=== PATIENT | male | born 1950 | race Two or more races ===

== ENCOUNTER → 2023-09-09 | Outpatient (CLI) | payer MEDICARE ==
--- NOTE | 2023-09-09 14:40 | P.GSHP ---
History of Present Illness H&P Date: 09/09/23 Chief Complaint: left breast mass, start of something on the right Mr. Perkins is a 72 year old male from [place] with a complaint of a mass in his left breast. He is here because his mother is in Hospice. The patient has been here for about 5 days. He saw a MD on Sep 01 or and he did a mammogram and ultrasound. In the interum he came to [place] and wants to have this evaluated. He has had the lump for about 2 months. He noted it in the shower. He is uncertain if it has changed in size. He is not complaining of any nipple discharge. He has not had any trauma or infection in the breast. He has not had any surgery on his breast. By his primary care physician and told that he needed a biopsy of his left breast. Secondary to the fact that he is in [place] he would like to have this evaluated here. caffiene: 1 pot/day nicotine: 1/2 PPD for 50 years chocolate: occasional Family History: sister: ? type Surgical History: left shoulder replacement right rotator cuff Medical History: none Social History: nicotine: 1/2 PPD for 50 years alcohol: two or three times a week drugs: Weekly - Constitutional Constitutional: Denies chills, Denies fever - EENT Eyes: denies blurred vision, denies pain Ears: bilateral: decreased hearing Ears, nose, mouth and throat: Denies headache, Denies sore throat - Breasts Breasts: bilateral: as per HPI - Cardiovascular Cardiovascular: Reports shortness of breath - Respiratory Respiratory: Denies cough, Denies 7 - Gastrointestinal Gastrointestinal: Denies abdominal pain, Denies diarrhea, Denies nausea, Denies vomiting - Genitourinary (Male) Genitourinary: Denies dysuria, Denies hematuria - Musculoskeletal Musculoskeletal: Reports myalgias - Integumentary Integumentary: Denies pruritus, Denies rash - Neurological Neurological: Denies numbness, Denies weakness - Psychiatric Psychiatric: Reports anxiety, Reports depression - Endocrine Endocrine: Denies fatigue, Denies weight change - Hematologic/Lymphatic Comment: none - Allergic/Immunologic Allergic/Immunologic: Reports seasonal allergies Surgical - Exam - General moderate distress - Eyes normal ocular movement - Neck trachea midline - Respiratory normal respiratory effort, clear to auscultation - Cardiovascular Heart Sounds: normal: S1, S2 - Abdomen Abdomen: soft, non tender, no guarding, no rigid, no rebound - Integumentary normal turgor - Neurologic no disoriented, no combative - Musculoskeletal normal gait - Psychiatric oriented to time, oriented to person, oriented to place, speech is normal, memory intact Breast exam: Right breast: Multi positional exam slight fullness behind the right nipple areolar area no dominant masses or nodules of concern otherwise Right axilla: No adenopathy of concern Left breast: Multi positional exam fullness behind the nipple areolar area approximately 2 x 3 cm in size No other dominant masses or nodules of concern Left axilla: No adenopathy of concern Testicular exam no lumps or masses of concern in either testicle Results Mammogram and ultrasound were done in [place] and those results are not yet available to us Assessment and Plan Assessment: Impression: Bilateral breast masses/left greater than the right Probable gynecomastia Radiographs pending from [place] Plan: Obtain radiographs from [place] Probable left breast core biopsy Follow-up after core biopsy
== END | disposition home or self-care (01) ==
LOC: RADMAMWWP 14:19
PROVIDERS: ATTEND Surgery
DX: Z53.9 Procedure and treatment not carried out, unspecified reason (principal)

== ENCOUNTER → 2023-09-09 | Outpatient (CLI) | payer MEDICARE | LOC: WWCWWP 14:16 | PROVIDERS: ATTEND Surgery | DX: N63.20 Unspecified lump in the left breast, unspecified quadrant (principal); N63.10 Unspecified lump in the right breast, unspecified quadrant; F17.210 Nicotine dependence, cigarettes, uncomplicated ==

== ENCOUNTER → 2023-09-28 | Day surgery (SDC) | payer MEDICARE ==
--- NOTE | 2023-10-07 11:57 | USB ---
Pathology Description: Location: posterior. Needle Type: Mammotome Cores: 10 Gauge: 13 The procedure of ultrasound guided core biopsy was explained to the patient. Benefits, alternatives, and risks were discussed. An informed consent was then obtained. The patient was placed in supine positioning for imaging and for the procedure. The overlying skin was prepped and draped in usual sterile fashion. Lidocaine was used as anesthetic into the skin and subcutaneous tissue up to area of concern in the subareolar left breast. Under ultrasound guidance, a 13-gauge vacuum-assisted mammotome biopsy gun was used to obtain 10 core samples. Due to suspicion of gynecomastia, no clip was placed. The patient tolerated the procedure well without any immediate complication. The patient was kept in the radiology department for short stay after the procedure and then discharged home in stable condition. No post procedure mammogram was performed. IMPRESSION: Successful, uncomplicated ultrasound guided core biopsy of subareolar left breast tissue, suspected asymmetric gynecomastia. If results confirm benign gynecomastia, the patient is interested in further management for symptomatic relief. Full pathology results to follow. Pathology Results: Result: Benign, Gynecomastia. LEFT BREAST POSTERIOR NIPPLE, NEEDLE CORE BIOPSY: Gynecomastia and focal fibrosis/scar. Overall Assessment: Benign Electronically signed and approved by: Yasemin Elnea M.D. Radiologist
== END ==
LOC: RADUSWWP 12:29
PROVIDERS: ATTEND Surgery
DX: N63.42 Unspecified lump in left breast, subareolar (principal); N62 Hypertrophy of breast; R92.8 Other abnormal and inconclusive findings on diagnostic imaging of breast
CPT/HCPCS: 88305

== ENCOUNTER → 2023-10-06 | Outpatient (CLI) | payer MEDICARE ==
--- NOTE | 2023-10-06 12:51 | P.PN ---
Subjective Progress Note Date: 10/06/23 Principal diagnosis: gynecomastia left breast mass, start of something on the right Mr. Perkins is a 72 year old male from [place] with a complaint of a mass in his left breast. He is here because his mother is in Hospice. The patient has been here for about 5 days. He saw a MD on Sep 01 or and he did a mammogram and ultrasound. In the interum he came to [place] and wants to have this evaluated. He has had the lump for about 2 months. He noted it in the shower. He is uncertain if it has changed in size. He is not complaining of any nipple discharge. He has not had any trauma or infection in the breast. He has not had any surgery on his breast. By his primary care physician and told that he needed a biopsy of his left breast. Secondary to the fact that he is in [place] he would like to have this evaluated here. 10-06-23 bilateral mammogram and left breast ultrasound report from [place] 09-01-23 reviewed; core biopsy of left breast recommended the actual x-rays are not available to us; He tolerated the biopsy without difficulty. core biopsy left breast on 09-28-23 (+) for gynecomastia caffeine: 1 pot/day nicotine: 1/2 PPD for 50 years chocolate: occasional Family History: sister: ? type Surgical History: left shoulder replacement right rotator cuff Medical History: none Social History: nicotine: 1/2 PPD for 50 years alcohol: two or three times a week drugs: Weekly - Constitutional Constitutional: Denies chills, Denies fever - EENT Eyes: denies blurred vision, denies pain Ears: bilateral: decreased hearing Ears, nose, mouth and throat: Denies headache, Denies sore throat - Breasts Breasts: bilateral: as per HPI - Cardiovascular Cardiovascular: Reports shortness of breath - Respiratory Respiratory: Denies cough - Gastrointestinal Gastrointestinal: Denies abdominal pain, Denies diarrhea, Denies nausea, Denies vomiting - Genitourinary (Male) Genitourinary: Denies dysuria, Denies hematuria - Musculoskeletal Musculoskeletal: Reports myalgias - Integumentary Integumentary: Denies pruritus, Denies rash - Neurological Neurological: Denies numbness, Denies weakness - Psychiatric Psychiatric: Reports anxiety, Reports depression - Endocrine Endocrine: Denies fatigue, Denies weight change - Hematologic/Lymphatic Comment: none - Allergic/Immunologic Allergic/Immunologic: Reports seasonal allergies Objective - Constitutional General appearance: Present: cooperative - EENT ENT: Present: hearing grossly normal - Neck Neck: Present: normal ROM - Integumentary Integumentary Comment(s): Biopsy site clean and dry left breast - Psychiatric Psychiatric: Present: A&O x's 3, appropriate affect, intact judgment & insight Assessment and Plan Assessment: Impression: gynecomastia left breast Plan: lifestyle modifications discussed stopping his alcohol consumption as well as stopping marijuana use At this time he states that that is probably not going to happen Repeat left breast ultrasound in 6 months with physician exam at that time, most likely this will occur in [place] CC: Dr. Meek in [facility] phone # , or
[2023-10-06 13:18] VITALS: BP 129/78; PULSE 70; RESP 17; TEMP 97.8
== END ==
LOC: WWCWWP 12:28
PROVIDERS: ATTEND Surgery
DX: N62 Hypertrophy of breast (principal); F17.210 Nicotine dependence, cigarettes, uncomplicated; F12.90 Cannabis use, unspecified, uncomplicated